=== PATIENT | female | born 1995 | race Caucasian/White ===

== ENCOUNTER → 2017-04-13 | Outpatient (CLI) | payer OTHER ==
[~2017-04-13] MED LIST: ACET500 PO; BENZ100A PO; BIRTH CONTROL; BUSP5 PO; Bactrim 400-801 EACH PO; Bactrim Ds Tab1 EACH PO; CRUTCH4 USE; CYCL10 PO; DICY20 PO; DOCU100 PO; HYDACE5 PO; IBUP400 PO; IBUP600 PO; IBUP800 PO; Keflex500 MG PO; LOPE2C PO; Lotrimin Ultra12 GM TP; Mobic7.5 MG PO; NAPR500 PO; Naprosyn500 MG PO; PHENA200 PO; PREVIFEM TABLE1 EACH PO; PROM25 PO; Prenatabs FA T1 EACH PO; Pyridium200 MG PO; SULTRIDS PO; Valium5 MG PO; Zofran Odt8 MG SL; Zovirax800 MG PO
[2017-04-14 10:40] LABS: Candida species (DNA Probe) Negative (NEGATIVE); G. vaginalis (DNA Probe) Positive (NEGATIVE); T. vaginalis (DNA Probe) Negative (NEGATIVE)
[2017-04-14 14:00] LABS: Source VAG/CERVIX
[2017-04-15 09:15] LABS: Source VAG/CERVIX
== END | disposition home or self-care (01) ==
LOC: LAB 16:32
PROVIDERS: Advanced Practice Midwife
DX: Z01.419 Encounter for gynecological examination (general) (routine) without abnormal findings (principal); Z11.3 Encounter for screening for infections with a predominantly sexual mode of transmission; N89.8 Other specified noninflammatory disorders of vagina
CPT/HCPCS: 87480; 87491; 87510; 87591; 87660; 87661; G0123

== ENCOUNTER 2017-05-23 07:38 | Emergency (ER) | payer OTHER ==
[~2017-05-23] VITALS: Ht 165.1 cm; Wt 72.6 kg
[~2017-05-23 07:38] MED LIST changes: -BUSP5 PO; -Bactrim 400-801 EACH PO
[2017-05-23] MEDS ORDERED: BUSP5 PO (08:03)
[2017-05-23] MEDS ORDERED: Pyridium200 MG PO (08:38)
[2017-05-23] MEDS ORDERED: Bactrim 400-801 EACH PO (08:38)
== END 2017-05-23 08:48 | disposition home or self-care (01) ==
LOC: ER 07:38
DX: N39.0 Urinary tract infection, site not specified (principal); Z79.899 Other long term (current) drug therapy; Z87.891 Personal history of nicotine dependence
CPT/HCPCS: 81000; 81025; 99283

== ENCOUNTER 2018-09-22 08:44 | Emergency (ER) | payer OTHER ==
[~2018-09-22] VITALS: Ht 165.1 cm; Wt 79.4 kg
[~2018-09-22 08:44] MED LIST changes: +BUSP5 PO; +Bactrim 400-801 EACH PO
[2018-09-22] MEDS ORDERED: LORA.5 (09:05)
[2018-09-22 09:56] LABS: BASOPHILS ABSOLUTE AUTO 0.01 K/mm3 (0.00-0.23); BASOPHILS PERCENT AUTO 0 % (0-2); EOSINOPHILS ABSOLUTE AUTO 0.01 K/mm3 (0.00-0.68); EOSINOPHILS PERCENT AUTO 0 % (0-6); Hematocrit 40.3 % (33.0-51.0); IMMATURE GRAN ABSOLUTE AUTO 0.02 K/mm3 (0.00-0.10); IMMATURE GRAN PERCENT AUTO 0 % (0-1); LYMPHOCYTES ABSOLUTE AUTO 1.24 K/mm3 (0.84-5.20); LYMPHOCYTES PERCENT AUTO 15 % (21-46); MONOCYTES ABSOLUTE AUTO 0.31 K/mm3 (0.16-1.47); MONOCYTES PERCENT AUTO 4 % (4-13); Mean Corpuscular HGB 29.9 pg (26.0-34.0); Mean Corpuscular HGB Conc 34.7 g/dL (31.5-36.5); Mean Corpuscular Volume 86 fL (80-100); Mean Platelet Volume 11.2 fL (9.1-12.4); NEUTROPHILS ABSOLUTE AUTO 6.83 K/mm3 (1.96-9.15); NEUTROPHILS PERCENT AUTO 81 % (41-73); Platelet Count 186 K/mm3 (150-400); RDW Coefficient Variation 12.3 % (11.7-14.2); RDW Standard Deviation 38.9 fL (35.1-46.3); Red Blood Cell Count 4.68 M/mm3 (3.80-5.20); White Blood Cell Count 8.42 K/mm3 (4.00-11.30)
[2018-09-22 10:07] LABS: Alanine Aminotransfer (ALT/SGP 24 U/L (12-78); Albumin, Blood 4.5 g/dL (3.4-5.0); Albumin/Globulin Ratio 1.3 (0.8-1.8); Alk Phos 56 U/L (50-136); Anion Gap 8 mmol/L (6-16); Aspartate Aminotrans (AST/SGOT 12 U/L (12-37); Bilirubin, Total 0.5 mg/dL (0.1-1.0); Blood Urea Nitrogen 13 mg/dL (8-24); Bun/Creatinine Ratio 19.8 (12.0-20.0); CO2, Blood 23 mmol/L (21-32); Calcium, Blood 9.1 mg/dL (8.5-10.1); Chloride, Blood 107 mmol/L (98-108); Creatinine, Blood 0.66 mg/dL (0.40-1.00); Globulin, Blood 3.5 g/dL (2.2-4.0); Glomerular Filtration Rate >60 (60-); Glucose, Blood 80 mg/dL (70-99); Potassium, Blood 3.7 mmol/L (3.5-5.5); Sodium, Blood 138 mmol/L (136-145)
[2018-09-22 10:31] LABS: Source, Urine Clean Catch
[2018-09-22 10:51] LABS: Bilirubin, Urine Neg (Neg); Blood, Urine 3+ (Neg); Glucose Qualitative, Urine Neg (Neg); Ketones, Urine 4+ (Neg); Leukocyte Esterase, Urine Neg (Neg); Nitrite, Urine Neg (Neg); Protein, Urine 1+ (Neg); Specific Gravity, Urine 1.025 (1.003-1.022); Urobilinogen, Urine NORM (Normal)
[2018-09-22 10:54] LABS: Appearance, Urine Clear (Clear); Color, Urine Yellow (P-Yellow)
[2018-09-22 11:00] LABS: Squamous Epithelial Cells Few /hpf (Few); White Blood Cells, Urine 0-2 /hpf (0-5)
[2018-09-22 11:01] LABS: Bacteria Many /hpf; Mucus Mod (0-Heavy)
== END 2018-09-22 12:07 | disposition home or self-care (01) ==
LOC: ER 08:44
PROVIDERS: Emergency Medicine
DX: F41.1 Generalized anxiety disorder (principal); Z87.891 Personal history of nicotine dependence
CPT/HCPCS: 36415; 80053; 81001; 81025; 84443; 85025; 87086; 96360; 96361; 99283-25; J2405; J7030

== ENCOUNTER → 2019-11-28 | Outpatient (CLI) | payer OTHER ==
[~2019-11-28] MED LIST changes: +LORA.5
[2019-12-01 03:08] LABS: CHLAMYDIA TRACHOMATIS, NAA Negative (Negative); NEISSERIA GONORRHOEAE, NAA Negative (Negative)
== END ==
LOC: LAB 19:46 → LAB SHORT 19:46
PROVIDERS: Registered Nurse Community Health
DX: Z34.91 Encounter for supervision of normal pregnancy, unspecified, first trimester (principal)
CPT/HCPCS: 87491; 87591

== ENCOUNTER → 2020-06-13 | Outpatient (CLI) | payer OTHER ==
[~2020-06-13] MED LIST changes: +PRENATAL TABLE1 EAC2 PO
== END ==
LOC: LAB SHORT 17:41 → LAB 17:41
DX: Z34.91 Encounter for supervision of normal pregnancy, unspecified, first trimester (principal)
CPT/HCPCS: 87081; 87150

== ENCOUNTER 2020-07-02 17:40 | Inpatient (IN) | payer OTHER ==
[~2020-07-02] VITALS: Ht 165.1 cm; Wt 86.0 kg
[~2020-07-02 17:40] MED LIST changes: -PRENATAL TABLE1 EAC2 PO
[2020-07-02] MEDS ORDERED: PRENATAL TABLE1 EAC2 PO (18:20)
[2020-07-02] MEDS ORDERED: BUSP5 PO (18:20)
[2020-07-02 18:29] LABS: BASOPHILS ABSOLUTE AUTO 0.02 K/mm3 (0.00-0.23); BASOPHILS PERCENT AUTO 0 % (0-2); EOSINOPHILS ABSOLUTE AUTO 0.04 K/mm3 (0.00-0.68); EOSINOPHILS PERCENT AUTO 0 % (0-6); Hematocrit 35.3 % (33.0-51.0); Hemoglobin 12.7 g/dL (11.5-16.0); IMMATURE GRAN ABSOLUTE AUTO 0.07 K/mm3 (0.00-0.10); IMMATURE GRAN PERCENT AUTO 1 % (0-1); LYMPHOCYTES ABSOLUTE AUTO 1.75 K/mm3 (0.84-5.20); LYMPHOCYTES PERCENT AUTO 16 % (21-46); MONOCYTES ABSOLUTE AUTO 0.69 K/mm3 (0.16-1.47); MONOCYTES PERCENT AUTO 6 % (4-13); Mean Corpuscular HGB 31.1 pg (26.0-34.0); Mean Corpuscular Volume 86 fL (80-100); Mean Platelet Volume 11.6 fL (9.1-12.4); NEUTROPHILS ABSOLUTE AUTO 8.63 K/mm3 (1.96-9.15); NEUTROPHILS PERCENT AUTO 77 % (41-73); Platelet Count 109 K/mm3 (150-400); RDW Coefficient Variation 14.3 % (11.7-14.2); RDW Standard Deviation 44.7 fL (35.1-46.3); Red Blood Cell Count 4.09 M/mm3 (3.80-5.20)
[2020-07-02 18:46] LABS: Influenza A, PCR NEGATIVE (NEGATIVE); Influenza B, PCR NEGATIVE (NEGATIVE); Resp Syncytial Virus, PCR NEGATIVE (NEGATIVE); SARS-Cov-2 (COVID-19) PCR, MMC NEGATIVE (NEGATIVE)
[2020-07-03 06:16] LABS: BASOPHILS ABSOLUTE AUTO 0.03 K/mm3 (0.00-0.23); BASOPHILS PERCENT AUTO 0 % (0-2); EOSINOPHILS ABSOLUTE AUTO 0.01 K/mm3 (0.00-0.68); EOSINOPHILS PERCENT AUTO 0 % (0-6); Hematocrit 37.1 % (33.0-51.0); Hemoglobin 13.1 g/dL (11.5-16.0); IMMATURE GRAN ABSOLUTE AUTO 0.13 K/mm3 (0.00-0.10); IMMATURE GRAN PERCENT AUTO 1 % (0-1); LYMPHOCYTES ABSOLUTE AUTO 1.32 K/mm3 (0.84-5.20); LYMPHOCYTES PERCENT AUTO 7 % (21-46); MONOCYTES ABSOLUTE AUTO 1.07 K/mm3 (0.16-1.47); MONOCYTES PERCENT AUTO 6 % (4-13); Mean Corpuscular HGB 30.8 pg (26.0-34.0); Mean Corpuscular HGB Conc 35.3 g/dL (31.5-36.5); Mean Corpuscular Volume 87 fL (80-100); Mean Platelet Volume 11.6 fL (9.1-12.4); NEUTROPHILS ABSOLUTE AUTO 15.62 K/mm3 (1.96-9.15); NEUTROPHILS PERCENT AUTO 86 % (41-73); Platelet Count 104 K/mm3 (150-400); RDW Coefficient Variation 14.3 % (11.7-14.2); RDW Standard Deviation 44.7 fL (35.1-46.3); Red Blood Cell Count 4.26 M/mm3 (3.80-5.20); White Blood Cell Count 18.18 K/mm3 (4.00-11.30)
[2020-07-03] MEDS ORDERED: IBUP800 PO (07:18)
--- NOTE | 2020-07-03 16:50 | NUR ---
Assumed care from Najma Alcantara RN.
--- NOTE | 2020-07-03 18:28 | NUR ---
Printed d/c instructions reviewed w/pt. Questions answered to her satisfaction. Denies additional questions/concerns at this time.
--- NOTE | 2020-07-03 23:48 | NUR ---
PATIENT DISCHARGED HOME WITH , ACCOMPANIED BY HER ANDERS.
--- NOTE | 2020-07-04 12:44 | NUR ---
RN/LC ROUNDED TO TALK W/ PT ABOUT BOTTLE FEEDING. INSTRUCT/DEMO PACED BOTTLE FEEDING. TALKED W/ PT ABOUT PUMPING AND THE SUPPLY/DEMAND OF BREASTMILK WELL HOW TO DRY UP MILK SUPPLY. FURTHER LC OFFERED.
== END 2020-07-03 23:45 | disposition home or self-care (01) | DRG 807 ==
LOC: BC 17:40 → OBS 17:40 → BC 18:01 → OBS 18:02 → BC 18:02
PROVIDERS: ADMIT Registered Nurse Community Health
PROC: 10E0XZZ Delivery of Products of Conception, External Approach (ICD-10-PCS; principal; 2020-07-02)
PROC: 0KQM0ZZ Repair Perineum Muscle, Open Approach (ICD-10-PCS; 2020-07-02)
PROC: 3E0R3BZ Introduction of Anesthetic Agent into Spinal Canal, Percutaneous Approach (ICD-10-PCS; 2020-07-02)
PROC: 00HU33Z Insertion of Infusion Device into Spinal Canal, Percutaneous Approach (ICD-10-PCS; 2020-07-02)
DX: O42.02 Full-term premature rupture of membranes, onset of labor within 24 hours of rupture (principal); Z37.0 Single live birth; O70.1 Second degree perineal laceration during delivery; Z3A.39 39 weeks gestation of pregnancy; O99.344 Other mental disorders complicating childbirth; F41.9 Anxiety disorder, unspecified
CPT/HCPCS: 0241U; 36415; 51702; 85025; 86850; 86900; 86901; A9270; J1885; J2001; J2210; J2590; J7120

== ENCOUNTER 2021-02-16 11:23 | Emergency (ER) | payer OTHER ==
[~2021-02-16] VITALS: Ht 165.1 cm; Wt 75.8 kg
[~2021-02-16 11:23] MED LIST changes: +PRENATAL TABLE1 EAC2 PO
[2021-02-16] MEDS ORDERED: AMOX-CLAV 500-1 EAC5 PO (11:42)
[2021-02-16 12:14] LABS: BASOPHILS ABSOLUTE AUTO 0.02 K/mm3 (0.00-0.23); BASOPHILS PERCENT AUTO 0 % (0-2); EOSINOPHILS ABSOLUTE AUTO 0.02 K/mm3 (0.00-0.68); EOSINOPHILS PERCENT AUTO 0 % (0-6); Hematocrit 39.1 % (33.0-51.0); Hemoglobin 13.7 g/dL (11.5-16.0); IMMATURE GRAN ABSOLUTE AUTO 0.06 K/mm3 (0.00-0.10); IMMATURE GRAN PERCENT AUTO 1 % (0-1); LYMPHOCYTES ABSOLUTE AUTO 1.33 K/mm3 (0.84-5.20); LYMPHOCYTES PERCENT AUTO 10 % (21-46); MONOCYTES ABSOLUTE AUTO 0.88 K/mm3 (0.16-1.47); MONOCYTES PERCENT AUTO 7 % (4-13); Mean Corpuscular HGB 29.7 pg (26.0-34.0); Mean Corpuscular Volume 85 fL (80-100); Mean Platelet Volume 10.8 fL (9.1-12.4); NEUTROPHILS PERCENT AUTO 82 % (41-73); Platelet Count 183 K/mm3 (150-400); RDW Coefficient Variation 12.5 % (11.7-14.2); RDW Standard Deviation 38.7 fL (35.1-46.3); Red Blood Cell Count 4.62 M/mm3 (3.80-5.20); White Blood Cell Count 13.21 K/mm3 (4.00-11.30)
[2021-02-16 12:53] LABS: Alanine Aminotransfer (ALT/SGP 19 U/L (12-78); Albumin, Blood 4.3 g/dL (3.4-5.0); Albumin/Globulin Ratio 1.2 (0.8-1.8); Alk Phos 64 U/L (50-136); Anion Gap 8 mmol/L (6-16); Aspartate Aminotrans (AST/SGOT 8 U/L (12-37); Bilirubin, Total 0.5 mg/dL (0.1-1.0); Blood Urea Nitrogen 7 mg/dL (8-24); Bun/Creatinine Ratio 10.5 (12.0-20.0); CO2, Blood 26 mmol/L (21-32); Calcium, Blood 9.6 mg/dL (8.5-10.1); Chloride, Blood 107 mmol/L (98-108); Creatinine, Blood 0.67 mg/dL (0.40-1.00); Globulin, Blood 3.7 g/dL (2.2-4.0); Glomerular Filtration Rate >60 (60-); Glucose, Blood 90 mg/dL (70-99); Potassium, Blood 3.5 mmol/L (3.5-5.5); Sodium, Blood 141 mmol/L (136-145)
== END 2021-02-16 14:51 | disposition home or self-care (01) ==
LOC: ER 11:23
PROVIDERS: Physician Assistant
DX: R60.0 Localized edema (principal); Z79.899 Other long term (current) drug therapy; Z87.440 Personal history of urinary (tract) infections
CPT/HCPCS: 36415; 70491; 80053; 85025; 96374; 96375; 99284-25; J1100; J1885; J7030; Q9967

== ENCOUNTER 2021-02-17 16:09 | Emergency (ER) | payer OTHER ==
[~2021-02-17] VITALS: Ht 165.1 cm; Wt 75.8 kg
[~2021-02-17 16:09] MED LIST changes: +AMOX-CLAV 500-1 EAC5 PO
== END 2021-02-17 19:41 | disposition home or self-care (01) ==
LOC: ER 16:09
DX: J36 Peritonsillar abscess (principal); Z87.891 Personal history of nicotine dependence; Z79.899 Other long term (current) drug therapy
CPT/HCPCS: 10160; 76536; 96365; 96375; 99283-25; A9270; J0295; J1100

== ENCOUNTER → 2022-10-22 | Outpatient (CLI) | payer BC | LOC: LAB 08:30 | DX: R35.0 Frequency of micturition (principal) ==

== ENCOUNTER 2024-02-06 07:25 | Emergency (ER) | payer BC ==
[~2024-02-06] VITALS: Ht 165.1 cm; Wt 77.1 kg
[2024-02-06 08:35] LABS: BASOPHILS ABSOLUTE AUTO 0.01 K/mm3 (0.00-0.23); BASOPHILS PERCENT AUTO 0 % (0-2); EOSINOPHILS ABSOLUTE AUTO 0.09 K/mm3 (0.00-0.68); EOSINOPHILS PERCENT AUTO 1 % (0-6); Hemoglobin 13.7 g/dL (11.5-16.0); IMMATURE GRAN ABSOLUTE AUTO 0.01 K/mm3 (0.00-0.10); IMMATURE GRAN PERCENT AUTO 0 % (0-1); LYMPHOCYTES ABSOLUTE AUTO 1.68 K/mm3 (0.84-5.20); LYMPHOCYTES PERCENT AUTO 27 % (21-46); MONOCYTES ABSOLUTE AUTO 0.36 K/mm3 (0.16-1.47); MONOCYTES PERCENT AUTO 6 % (4-13); Mean Corpuscular HGB 30.3 pg (26.0-34.0); Mean Corpuscular HGB Conc 36.1 g/dL (31.5-36.5); Mean Corpuscular Volume 84 fL (80-100); Mean Platelet Volume 10.3 fL (9.1-12.4); NEUTROPHILS ABSOLUTE AUTO 4.09 K/mm3 (1.96-9.15); NEUTROPHILS PERCENT AUTO 66 % (41-73); Platelet Count 164 K/mm3 (150-400); RDW Coefficient Variation 12.4 % (11.7-14.2); RDW Standard Deviation 37.8 fL (35.1-46.3); Red Blood Cell Count 4.52 M/mm3 (3.80-5.20); White Blood Cell Count 6.24 K/mm3 (4.00-11.30)
[2024-02-06 08:58] LABS: Alanine Aminotransfer (ALT/SGP 22 U/L (12-78); Albumin/Globulin Ratio 1.3 (0.8-1.8); Alk Phos 45 U/L (50-136); Anion Gap 8 mmol/L (3-11); Aspartate Aminotrans (AST/SGOT 11 U/L (12-37); Bilirubin, Total 0.4 mg/dL (0.1-1.0); Blood Urea Nitrogen 12 mg/dL (8-24); C-REACTIVE PROTEIN, EXT RANGE <0.290 mg/dL (0.000-0.300); CO2, Blood 24 mmol/L (21-32); Calcium, Blood 8.6 mg/dL (8.5-10.1); Chloride, Blood 112 mmol/L (98-108); Creatinine, Blood 0.67 mg/dL (0.40-1.00); Globulin, Blood 3.1 g/dL (2.2-4.0); Glomerular Filtration Rate 121 (60-); Glucose, Blood 90 mg/dL (70-99); Potassium, Blood 3.9 mmol/L (3.5-5.5); Sodium, Blood 140 mmol/L (136-145); Total Protein, Blood 7.1 g/dL (6.4-8.2)
[2024-02-06 10:27] VITALS: BP 124/82
== END 2024-02-06 10:45 | disposition home or self-care (01) ==
LOC: ER 07:25
PROVIDERS: Physician Assistant
DX: M54.2 Cervicalgia (principal); Z79.899 Other long term (current) drug therapy
CPT/HCPCS: 70491; 80053; 84703; 85025; 86140; 87081; 87430; 99283-25; Q9967

== ENCOUNTER → 2024-06-21 | Outpatient (CLI) | payer BC | LOC: LAB SHORT 14:36 → LAB 14:36 | DX: N94.9 Unspecified condition associated with female genital organs and menstrual cycle (principal) | CPT/HCPCS: 87070; 87205 ==